=== PATIENT | female | born 1970 | race Caucasian/White ===

== ENCOUNTER → 2021-07-29 | Outpatient (CLI) | payer BC ==
[2005-03-19 07:42] VITALS: TEMP 97.1
== END ==
LOC: MC.RAD 14:13
DX: Z12.31 Encounter for screening mammogram for malignant neoplasm of breast (principal)

== ENCOUNTER → 2021-09-04 | Outpatient (CLI) | payer BC ==
[2005-03-19 07:42] VITALS: TEMP 97.1
== END ==
LOC: COL.CARD 07:16
DX: N92.0 Excessive and frequent menstruation with regular cycle (principal)